=== PATIENT | male | born 1980 | race Caucasian/White ===

== ENCOUNTER 2025-10-02 17:10 | Emergency (ER) | payer MEDICAID ==
[~2025-10-02] VITALS: Ht 188 cm; Wt 95.0 kg
--- NOTE | 2025-10-02 17:25 | Physician Documentation ---
History of Present Illness General Chief Complaint: Bite-animal Stated Complaint: COLLARBONE PAIN Time Seen by MD: 17:15 History of Present Illness Initial Comments 45-year-old male right-hand dominant presents to the emergency department for evaluation of right scapular pain x 1 week. Blunt injury to the right scapula with reproducible pain with range of motion of the right shoulder. No crepitus noted, no subcutaneous air. He is grossly neurologically intact radial median ulnar nerve. Medication Reconciliation Allergies: Coded Allergies: acetaminophen (Verified Allergy, Severe, DELUSIONS, 10/02/25) oxycodone (Verified Allergy, Severe, DELUSIONS, 10/02/25) Review of Systems All Other Systems at this time: Reviewed and Negative Musc: Reports: back pain Physical Exam Physical Exam Vital Signs: RN Vital Signs have been reviewed: Yes General Appearance: alert, WD/WN, mild distress Head: normal inspection Face: normal inspection Pupils/EOM/Fundus: PERRLA Chest: no accessory muscle use Cardiovascular: normal peripheral pulses Gastrointestinal: normal palpation Back: normal inspection Extremities: other (Painful range of motion of the right shoulder. No crepitus to the right scapula. No winging scapula. Long thoracic nerve intact) Neurologic: oriented x4 Motor / Sensory: no motor deficit, no sensory deficit Psychiatric: normal mood/affect Skin: normal color, warm/dry Progress Results/Orders Results/Orders Orders - CHANDNI SHERMAN PAC Shoulder, Complete (Min 2 Vws) (10/02/25 17:34) Scapula (10/02/25 17:34) Ct Upper Extrem(Shoulder/Arm) (10/02/25 18:40) Ortho Orders (10/02/25 ) Completed Orders - CHANDNI SHERMAN PAC Shoulder, Complete (Min 2 Vws) (10/02/25 17:34) Scapula (10/02/25 17:34) Ct Upper Extrem(Shoulder/Arm) (10/02/25 18:40) Vital Signs 10/02/25 10/02/25 17:16 19:34 Temp 98.7 97.6 Pulse 75 75 Resp 18 20 B/P (MAP) 115/73 110/70 Pulse Ox 98 100 O2 Flow Rate 0 Medical Decision Making Additional information obtaine: family Findings Examination history warrants x-ray imaging to evaluate for bony pathologies. Low suspicion for fracture yet suspect a subscapular nerve involvement. No winging scapula noted. Differential Diagnosis Winged scapula not likely, fracture unlikely with reassuring x-rays, likely subscapular nerve rotator cuff involvement. CT imaging recommended due to conclusive x-ray evaluation. CT imaging reassuring for no fracture. Discharged in the emergency department grossly neurologically intact radial median ulnar nerve with the recommendation with primary care and orthopedic follow up. Sling provided for comfort and support. Departure Disposition: HOME / SELF CARE / HOMELESS Impression: Primary Impression: Pain of right scapula Condition: Improved Discharge Instructions: Shoulder Pain Additional Instructions: Tonight in the emergency department you had x-rays obtained and CT imaging of the scapula. The CT imaging are is negative for fracture. He has suspect the pain is originating from the subscapular nerve from the rotator cuff. Please make follow up appointment with the primary care physician. Wear sling for comfort and support as needed. Referrals: NO PRIMARY CARE PROVIDER (PCP) Education Educated: Patient, Family Educated regarding: diagnosis, treatment, prognosis, need for follow up Signature Scribe Signature: . Attestation: . CHANDNI SHERMAN PAC Oct 02, 2025 17:25
--- NOTE | 2025-10-02 18:23 | RADIOLOGY REPORT ---
Indication: scapula pain/injury,RIGHT Technique: DI SCAPULA, DI SHOULDER, COMPLETE (MIN 2 VWS)SCAPULA Comparison: None FINDINGS/IMPRESSION: Cortical irregularity of the scapula in the spinous / supraspinatus region. Recommend CT of the right shoulder/ scapula to further evaluate. Mild right AC joint arthrosis. No evidence for glenohumeral dislocation Old posterior 3rd, 4th, 5th and 6th rib fractures
--- NOTE | 2025-10-02 18:23 | RADIOLOGY REPORT ---
Indication: scapula pain/injury,RIGHT Technique: DI SCAPULA, DI SHOULDER, COMPLETE (MIN 2 VWS)SCAPULA Comparison: None FINDINGS/IMPRESSION: Cortical irregularity of the scapula in the spinous / supraspinatus region. Recommend CT of the right shoulder/ scapula to further evaluate. Mild right AC joint arthrosis. No evidence for glenohumeral dislocation Old posterior 3rd, 4th, 5th and 6 rib fractures
--- NOTE | 2025-10-02 19:08 | RADIOLOGY REPORT ---
INDICATION: SUspect scapula fx. Pain. COMPARISON: DI SCAPULA on DOS: 10/02/25, DI SHOULDER, COMPLETE (MIN 2 VWS) on DOS: 10/02/25 TECHNIQUE: CT of the right shoulder was performed without contrast. Volume transverse images were obtained and reconstructed in multiple planes using bone and soft tissue algorithms. CONTRAST: None Radiation Dose Information: CTDI volume is 28.92 mGy. Dose-length product is 765.89 mGy*cm FINDINGS: The alignment is normal. The joint spaces are normal. The glenohumeral joint is normal. The acromioclavicular joint is normal. There is no fracture, dislocation, or focal osseous lesion. The soft tissues are normal. The imaged portions of the mediastinum and right hemithorax are normal. IMPRESSION: No acute fracture. All CT scans at this medical facility are performed using dose modulation techniques as appropriate to a performed exam including the following: Automated exposure control was utilized; adjustment of the MA and/or KV according to patient size; and use of iterative reconstruction technique.
[2025-10-02 19:34] VITALS: BP 110/70; PULSE 75; RESP 20; TEMP 97.6; O2SAT 100
== END 2025-10-02 19:35 | disposition home or self-care (01) ==
LOC: ER 17:11
DX: M25.511 Pain in right shoulder (principal); Z88.5 Allergy status to narcotic agent
CPT/HCPCS: 73010; 73030; 73200; 99284; A4565